=== PATIENT | female | born 1935 | race Caucasian/White ===

== ENCOUNTER → 2016-06-14 | Outpatient (CLI) | payer MEDICARE ==
--- NOTE | 2016-06-14 12:53 | RAD ---
EXAM: DIGITAL SCREEN BILAT W/CAD. HISTORY: Screening. COMPARISON: 06/12/2015 and 06/11/2014. FINDINGS: Digital mammography was performed. Computer-aided detection (CAD) was utilized. The breast parenchyma is heterogeneously dense, which could reduce sensitivity of mammography (tissue density C). No dominant suspicious mass, suspicious microcalcifications, or architectural distortion is identified. Both breasts demonstrate scattered, benign-appearing calcifications. IMPRESSION: No mammographic evidence of malignancy. BI-RADS CATEGORY: 2 BENIGN FINDING(S) RECOMMENDED FOLLOW-UP: 12M 12 MONTH FOLLOW-UP PQRS compliance statement: Patient information was entered into a reminder system with a target due date for the next mammogram. Mammography is a sensitive method for finding small breast cancers, but it does not detect them all and is not a substitute for careful clinical examination. A negative mammogram does not negate a clinically suspicious finding and should not result in delay in biopsying a clinically suspicious abnormality. "Our facility is accredited by the [employer] Mammography Program."
== END | disposition home or self-care (01) ==
LOC: MAMMO 14:12
PROVIDERS: ATTEND Family Medicine
DX: Z12.31 Encounter for screening mammogram for malignant neoplasm of breast (principal)
CPT/HCPCS: 77052; G0202; 77067

== ENCOUNTER → 2017-06-24 | Outpatient (CLI) | payer MEDICARE | END | disposition home or self-care (01) | LOC: MAMMO 14:06 | DX: Z12.31 Encounter for screening mammogram for malignant neoplasm of breast (principal) | CPT/HCPCS: 77067 ==

== ENCOUNTER 2017-10-06 18:47 | Emergency (ER) | payer MEDICARE ==
[2017-10-06 19:59] LABS: BILIRUBIN,URINE NEGATIVE (NEG); CLARITY,URINE CLEAR; COLOR,URINE YELLOW; GLUCOSE,URINE NEGATIVE (NEG); NITRITE,URINE NEGATIVE (NEG); PH,URINE 5.5; PROTEIN,URINE NEGATIVE (NEG-TRACE); UROBILINOGEN,URINE 0.2 mg/dL (0.2 mg/dL)
[2017-10-06 20:12] LABS: BACTERIA,URINE 0 /HPF (0-FEW); RBC,URINE 0 /HPF (0-2); SQUAMOUS EPITHELIAL CELL,UR MOD /LPF
[2017-10-06] MEDS: MORPHINE SULFATE 4 MG/ML DISP.SYRIN. IV (20:14)
[2017-10-06] MEDS: ONDANSETRON PF 4 MG/2 ML VIAL. IV (20:14)
[2017-10-06] MEDS: IV NORMAL SALINE 500ML BAG 500 ML IV (20:15)
[2017-10-06 20:18] LABS: ADD MAN DIFF? NO
[2017-10-06 20:20] LABS: BASO # 0.1 x10^3/uL (0.0-0.2); BASO % 1 % (0-3); EOS # 0.1 x10^3/uL (0.0-0.7); EOS % 1 % (0-3); HEMATOCRIT 41.8 % (36.0-47.0); HEMOGLOBIN 14.6 g/dL (12.0-15.5); LYMPH # 2.9 x10^3/uL (1.0-4.8); LYMPH % 28 % (24-48); MEAN CORPUSCULAR HEMOGLOBIN 32 pg (25-35); MEAN CORPUSCULAR HGB CONC 35 g/dL (31-37); MEAN CORPUSCULAR VOLUME 92 fL (79-100); MONO # 0.8 x10^3/uL (0.0-1.1); MONO % 8 % (0-9); NEUT # 6.4 x10^3uL (1.8-7.7); NEUT % 62 % (31-73); PLATELET COUNT 198 x10^3/uL (140-400); RED BLOOD COUNT 4.53 x10^6/uL (3.50-5.40); RED CELL DISTRIBUTION WIDTH 12.8 % (11.5-14.5); WHITE BLOOD COUNT 10.2 x10^3/uL (4.0-11.0)
[2017-10-06 20:27] LABS: ANION GAP 8 (6-14); BLOOD UREA NITROGEN 28 mg/dL (7-20); BUN/CREATININE RATIO 25 (6-20); CALCIUM 9.2 mg/dL (8.5-10.1); CARBON DIOXIDE 28 mmol/L (21-32); CHLORIDE 105 mmol/L (98-107); CREATININE 1.1 mg/dL (0.6-1.0); GFR 47.8; GLUCOSE 128 mg/dL (70-99); POTASSIUM 4.1 mmol/L (3.5-5.1); SODIUM 141 mmol/L (136-145)
[2017-10-06 20:32] LABS: ALBUMIN 3.5 g/dL (3.4-5.0); ALBUMIN/GLOBULIN RATIO 1.1 (1.0-1.7); ALK PHOS 50 U/L (46-116); ALT (SGPT) 32 U/L (14-59); AST (SGOT) 19 U/L (15-37); LIPASE 97 U/L (73-393); TOTAL BILIRUBIN 0.6 mg/dL (0.2-1.0); TOTAL PROTEIN 6.8 g/dL (6.4-8.2)
== END 2017-10-06 21:46 | disposition home or self-care (01) ==
LOC: ER 18:47
DX: M54.5 Low back pain (principal); E78.00 Pure hypercholesterolemia, unspecified
CPT/HCPCS: 36415; 74176; 80053; 81001; 83690; 85025; 96374; 96375; 99285-25; J2270; J2405; J7040

== ENCOUNTER → 2017-10-12 | Outpatient (CLI) | payer MEDICARE ==
[2017-10-12] MEDS: GADOBUTROL 10 MMOL/10 ML VIAL IV (10:15)
== END | disposition home or self-care (01) ==
LOC: MRI 09:49
DX: K57.10 Diverticulosis of small intestine without perforation or abscess without bleeding (principal); N28.89 Other specified disorders of kidney and ureter
CPT/HCPCS: 74183; A9585

== ENCOUNTER 2017-12-29 08:09 | Outpatient (CLI) | payer MEDICARE ==
[2017-12-29] MEDS ORDERED: LIDOCAINE WITH 8.4% SOD BICARB 3 ML DISP.SYRIN. (08:51)
[2017-12-29 08:58] LABS: ADD MAN DIFF? NO
[2017-12-29 09:07] LABS: BASO % 1 % (0-3); EOS # 0.1 x10^3/uL (0.0-0.7); EOS % 1 % (0-3); HEMATOCRIT 43.4 % (36.0-47.0); HEMOGLOBIN 15.1 g/dL (12.0-15.5); LYMPH # 2.9 x10^3/uL (1.0-4.8); LYMPH % 39 % (24-48); MEAN CORPUSCULAR HEMOGLOBIN 32 pg (25-35); MEAN CORPUSCULAR HGB CONC 35 g/dL (31-37); MEAN CORPUSCULAR VOLUME 93 fL (79-100); MONO # 0.8 x10^3/uL (0.0-1.1); MONO % 11 % (0-9); NEUT # 3.6 x10^3uL (1.8-7.7); NEUT % 49 % (31-73); PLATELET COUNT 197 x10^3/uL (140-400); RED BLOOD COUNT 4.65 x10^6/uL (3.50-5.40); RED CELL DISTRIBUTION WIDTH 12.8 % (11.5-14.5); WHITE BLOOD COUNT 7.3 x10^3/uL (4.0-11.0)
[2017-12-29 09:15] LABS: ANION GAP 5 (6-14); BLOOD UREA NITROGEN 26 mg/dL (7-20); CALCIUM 9.7 mg/dL (8.5-10.1); CARBON DIOXIDE 31 mmol/L (21-32); CHLORIDE 105 mmol/L (98-107); GFR 53.3; GLUCOSE 110 mg/dL (70-99); INR 1.1 (0.8-1.1); PARTIAL THROMBOPLASTIN TIME 28 SEC (24-38); PROTHROMBIN TIME PATIENT 13.3 SEC (11.7-14.0); SODIUM 141 mmol/L (136-145)
[2017-12-29] MEDS ORDERED: GELATIN SPONGE SIZE 12-7MM SPONGE. (09:15)
[2017-12-29] MEDS ORDERED: MIDAZOLAM HCL/PF 2 MG/2 ML VIAL. (09:28)
[2017-12-29] MEDS ORDERED: fentaNYL PF VIAL 100 MCG/2 ML VIAL (09:28)
[2017-12-29] MEDS ORDERED: IOHEXOL 300 MG/ML 100ML VIAL. (09:51)
[2017-12-29] MEDS: fentaNYL PF VIAL 100 MCG/2 ML VIAL IV (10:00)
[2017-12-29] MEDS: LIDOCAINE WITH 8.4% SOD BICARB 3 ML DISP.SYRIN. IJ (10:00)
[2017-12-29] MEDS: MIDAZOLAM HCL/PF 2 MG/2 ML VIAL. IV (10:00)
[2017-12-29] MEDS: IOHEXOL 300 MG/ML 100ML VIAL. IART (10:30)
[2017-12-29] MEDS ORDERED: CONTRAST GIVEN. MC (10:45)
== END 2017-12-29 13:20 | disposition home or self-care (01) ==
LOC: INTRAD 08:09
DX: N28.89 Other specified disorders of kidney and ureter (principal); I10 Essential (primary) hypertension; J45.909 Unspecified asthma, uncomplicated; E78.00 Pure hypercholesterolemia, unspecified; Z87.891 Personal history of nicotine dependence; Z85.828 Personal history of other malignant neoplasm of skin; Z79.82 Long term (current) use of aspirin; Z79.899 Other long term (current) drug therapy
CPT/HCPCS: 36415; 50200; 77012; 80048; 85025; 85610; 85730; 99152; 99153; J2250; J3010; Q9967

== ENCOUNTER → 2018-03-07 | Outpatient (CLI) | payer MEDICARE ==
[2017-12-29 13:00] VITALS: BP 141/62
[~2018-03-07] MED LIST: ALPR0.5T6 PO; ASPI-630 PO; ATOR10TA60 PO; AZEL23SP NS; CA C1TAB62 PO; HYDR-971 PO; MULT-697 PO; OMEG100021 PO; PANT20TA2 PO; VALS1TAB14 PO; VERA240C2 PO; VIT1CAPS12 PO
--- NOTE | 2018-03-07 09:18 | RAD ---
Abdominal ultrasound, 03/07/2018: HISTORY: Right upper quadrant pain The gallbladder is within normal limits in size. There is no sonographic evidence of cholelithiasis. The gallbladder wall is not thickened. The common hepatic duct is of normal caliber. No hepatic mass or bile duct dilatation is seen. The right kidney is unremarkable. A 3.2 cm hypoechoic nodule is seen in the left kidney. It demonstrates a sharp posterior wall with faint posterior acoustic enhancement. This is probably a cyst, although difficult to conclusively characterize sonographically due to the patient's size. Note is made that on the MR study of 10/12/2017, possible delayed enhancement was noted. The spleen is of normal size. A 1.2 cm cystic-appearing structure is seen in the region of the pancreatic body. This does not appear to correspond location to the small cystic structure seen along the posterior aspect of the uncinate process of the pancreatic head on a prior CT and MR studies. Portions of the pancreas are obscured by overlying bowel. IMPRESSION: 1. No significant gallbladder abnormality is detected. 2. Probable small left renal cyst. 3. Probable pancreatic cyst. 4. The additional small cyst delineated along the posterior margin of the pancreatic head seen on previous imaging is not visualized sonographically. 5. CT surveillance of the pancreatic and left renal findings is suggested, if clinically indicated. Electronically signed by: Rory Marrero MD (03/07/2018 9:14 AM) [facility]
--- NOTE | 2018-03-07 12:34 | RAD ---
HEPATOBILIARY SCAN WITH EJECTION FRACTION 03/07/2018 12:29 PM History: right upper quandrant abdomen pain, gassy for 6 months. 5.5mCi Tc99m Choletec. 8 ounces Ensure for EF since there is no kinevac available and scanned 60 minutes. Procedure: Serial static images are obtained of the liver and biliary system in the frontal projection following IV administration of 5.5 mCi of Technetium 99m Choletec. After filling of the gallbladder, a fat-containing oral supplement was given and dynamic imaging continued. The gallbladder ejection fraction was calculated. Findings: There is prompt hepatic clearance of tracer from the blood pool. There is homogeneous distribution throughout the liver. The gallbladder ejection fraction measures 56% IMPRESSION: 1. The cystic duct and common bile duct are patent. Negative for acute cholecystitis. 2. The gallbladder ejection fraction is grossly normal Electronically signed by: Avelino Belle MD (03/07/2018 12:30 PM) [id number]
== END | disposition home or self-care (01) ==
LOC: US 06:41
PROVIDERS: ATTEND Physician Assistant
DX: N28.89 Other specified disorders of kidney and ureter (principal); I10 Essential (primary) hypertension; J45.909 Unspecified asthma, uncomplicated; E78.00 Pure hypercholesterolemia, unspecified; Z85.828 Personal history of other malignant neoplasm of skin; Z87.891 Personal history of nicotine dependence; Z79.899 Other long term (current) drug therapy
CPT/HCPCS: 76700; 78226; 96374; 96375; A9537

== ENCOUNTER → 2018-06-26 | Outpatient (CLI) | payer MEDICARE ==
[2017-12-29 13:00] VITALS: BP 141/62
[~2018-06-26] MED LIST changes: +HYDR-3164 PO; -HYDR-971 PO
--- NOTE | 2018-06-28 11:18 | RAD ---
DATE: 06/26/2018 EXAM: MAMMO EFRA SCREENING BILATERAL HISTORY: Routine screening COMPARISON: 06/24/2017 This study was interpreted with the benefit of Computerized Aided Detection (CAD). Breast Density: HETERO The breast parenchyma is heterogenously dense, which could reduce sensitivity of mammography. Breast parenchyma level C. FINDINGS: 2-D and 3-D tomosynthesis imaging was performed in CC and MLO projections. The fibroglandular tissues are heterogeneous in a multinodular pattern. No new or enlarging breast densities are seen. Numerous benign type calcifications are present. No suspicious microcalcifications have developed. IMPRESSION: There is no mammographic evidence of malignancy in either breast. BI-RADS CATEGORY: 2 BENIGN FINDING(S) RECOMMENDED FOLLOW-UP: 12M 12 MONTH FOLLOW-UP PQRS compliance statement: Patient information was entered into a reminder system with a target due date for the next mammogram. Mammography is a sensitive method for finding small breast cancers, but it does not detect them all and is not a substitute for careful clinical examination. A negative mammogram does not negate a clinically suspicious finding and should not result in delay in biopsying a clinically suspicious abnormality. "Our facility is accredited by the [employer] Mammography Program."
== END | disposition home or self-care (01) ==
LOC: MAMMO 14:56
PROVIDERS: ATTEND Family Medicine
DX: Z12.31 Encounter for screening mammogram for malignant neoplasm of breast (principal)
CPT/HCPCS: 77063; 77067

== ENCOUNTER → 2018-09-01 | Outpatient (CLI) | payer MEDICARE ==
[2017-12-29 13:00] VITALS: BP 141/62
--- NOTE | 2018-09-01 09:56 | RAD ---
EXAM: Lower extremity arterial Doppler sonogram with ankle-brachial indices (RAÚL). HISTORY: Right great toe discoloration. TECHNIQUE: Doppler sonographic evaluation of the lower extremities was performed and pressure readings were assessed. FINDINGS: Right brachial pressure: 145 mmHg Left brachial pressure: 129 mmHg Right ankle pressure: 144 mmHg Right ankle RAÚL: 0.99 Left ankle pressure: 161 mmHg Left ankle RAÚL: 1.1 There are biphasic waveforms within the dorsalis pedis arteries and triphasic waveforms within the distal posterior tibial arteries. No occlusion is seen. IMPRESSION: Normal bilateral ankle-brachial indices. Electronically signed by: Tania Guy MD (09/01/2018 9:53 AM) [id number]
== END | disposition home or self-care (01) ==
LOC: US 07:38
PROVIDERS: ATTEND Family Medicine
DX: M79.671 Pain in right foot (principal); M79.674 Pain in right toe(s)
CPT/HCPCS: 93922

== ENCOUNTER → 2018-11-03 | Outpatient (CLI) | payer MEDICARE ==
[2017-12-29 13:00] VITALS: BP 141/62
--- NOTE | 2018-11-03 13:41 | KCIC ---
Bilateral lower extremity venous doppler ultrasound History: Foot swelling and discoloration Comparison: None Findings: Multiple grayscale, color, and duplex spectral analysis sonographic images were acquired of the bilateral lower extremity veins to evaluate for the presence of DVT. There is normal phasicity. Normal compression, color-flow, and augmentation is demonstrated from the bilateral common femoral to the popliteal veins. There is normal color flow of the proximal greater saphenous and profunda femoris veins. There is normal color flow of segments of the calf veins. Impression: 1. There is no evidence of deep venous thrombosis from the bilateral common femoral to the popliteal veins. Electronically signed by: Jayden Carrillo MD (11/03/2018 1:39 PM) [id number]
== END | disposition home or self-care (01) ==
LOC: KCIC US 11:33
PROVIDERS: ATTEND Family Medicine
DX: M79.89 Other specified soft tissue disorders (principal)
CPT/HCPCS: 93970

== ENCOUNTER → 2019-01-31 | Outpatient (CLI) | payer MEDICARE ==
[2017-12-29 13:00] VITALS: BP 141/62
--- NOTE | 2019-01-31 16:32 | KCIC ---
Examination: Ultrasound kidneys HISTORY: History of left renal cyst COMPARISON: 03/07/2018 Findings : The right kidney measures 9.9 x 4.2 x 4.8 cm. The left kidney measures 10.9 x 3.8 x 5.4 cm.There is a 2.5 cm cyst identified in the left kidney. There is thinning of the bilateral renal cortices, right greater than left. The urinary bladder is mildly distended. Bilateral ureteral jets identified. IMPRESSION: 1. 2.5 cm cyst left kidney. 2. Thinning of the bilateral renal cortices probably medical renal disease. Electronically signed by: Oren Finley MD (01/31/2019 4:29 PM) [place] [id number]
== END | disposition home or self-care (01) ==
LOC: KCIC US 15:25
PROVIDERS: ATTEND Internal Medicine Nephrology
DX: N28.1 Cyst of kidney, acquired (principal); N32.89 Other specified disorders of bladder; Z79.84 Long term (current) use of oral hypoglycemic drugs; Z79.899 Other long term (current) drug therapy
CPT/HCPCS: 76770

== ENCOUNTER → 2019-06-27 | Outpatient (CLI) | payer MEDICARE ==
[2017-12-29 13:00] VITALS: BP 141/62
--- NOTE | 2019-06-27 17:14 | RAD ---
DATE: 06/27/2019 EXAM: MAMMO EFRA SCREENING BILATERAL HISTORY: Routine screening COMPARISON: 06/11/2014, 06/12/2015, 06/14/2016, 06/24/2017, 06/26/2018 mammographic exams This study was interpreted with the benefit of Computerized Aided Detection (CAD). Breast Density: HETERO The breast parenchyma is heterogenously dense, which could reduce sensitivity of mammography. Breast parenchyma level C. FINDINGS: No suspicious mass, calcification, or distortion in the interval. IMPRESSION: Stable BI-RADS CATEGORY: 1 NEGATIVE RECOMMENDED FOLLOW-UP: 12M 12 MONTH FOLLOW-UP PQRS compliance statement: Patient information was entered into a reminder system with a target due date for the next mammogram. Mammography is a sensitive method for finding small breast cancers, but it does not detect them all and is not a substitute for careful clinical examination. A negative mammogram does not negate a clinically suspicious finding and should not result in delay in biopsying a clinically suspicious abnormality. "Our facility is accredited by the [employer] Mammography [employer]."
== END | disposition home or self-care (01) ==
LOC: MAMMO 10:03
PROVIDERS: ATTEND Family Medicine
DX: Z12.31 Encounter for screening mammogram for malignant neoplasm of breast (principal); N64.89 Other specified disorders of breast
CPT/HCPCS: 77063; 77067

== ENCOUNTER 2019-07-24 14:23 | Emergency (ER) | payer MEDICARE ==
[~2019-07-24] VITALS: Ht 175.3 cm; Wt 106.0 kg
[2019-07-24] MEDS ORDERED: PIPERACILLIN/TAZOBACTAM 4.5 GM in IV NORMAL SALINE 100ML 100 ML IV ONE (15:30)
--- NOTE | 2019-07-24 15:57 | PHYS DOC ---
Past Medical History Past Medical History: Constipation, Diabetes-Type II, High Cholesterol, Hypertension Additional Past Medical Histor: CARBON MONOXIDE POISONING (ALIYAH MCDONALD APRN) Past Surgical History: Other Additional Past Surgical Histo: COLON RESECTION-benign tumor removal, bladder tie up, skin cancer removal (ALIYAH MCDONALD APRN) Smoking Status: Former Smoker Additional Information: quit smoking 1977 Alcohol Use: Rarely Drug Use: None (ALIYAH MCDONALD APRN) Adult General Chief Complaint Chief Complaint: TOE PROBLEM HPI HPI Patient is a 84 year old female with history of diabetes type 2, hypertension, high cholesterol, who presents to the ED today complaining of right great toe swelling, redness, pain, symptoms began around May 2019. Patient reports following up with the PCP today and she was sent to the ED. She reports she was seen around May 2019 and had Doppler of the right lower extremity to check for circulation which was negative. She reports she recently completed Cipro for an infected skin cancer lesion on her scalp. Patient denies any fever. (ALIYAH MCDONALD APRN) Review of Systems Review of Systems Constitutional: Denies fever or chills [] Eyes: Denies change in visual acuity, redness, or eye pain [] HENT: Denies nasal congestion or sore throat [] Respiratory: Denies cough or shortness of breath [] Cardiovascular: No additional information not addressed in HPI [] GI: Denies abdominal pain, nausea, vomiting, bloody stools or diarrhea [] : Denies dysuria or hematuria [] Musculoskeletal: Denies back pain or joint pain [] Integument: Reports right great toe swelling, redness, pain Neurologic: Denies headache, focal weakness or sensory changes [] All other systems were reviewed and found to be within normal limits, except as documented in this note. (ALIYAH MCDONALD APRN) Current Medications Current Medications Current Medications Medications (Trade) Dose Ordered Sig/Dario Start Time Stop Time Status Last Admin Dose Admin Piperacillin Sod/ Tazobactam Sod 4.5 gm/Sodium Chloride 100 ml @ 200 mls/hr 1X ONCE 07/24/19 15:30 07/24/19 15:59 DC 07/24/19 16:09 200 MLS/HR (CHUCK BORJA DO) Allergies Allergies Allergies Coded Allergies Type Severity Reaction Last Updated Verified No Known Drug Allergies 01/21/15 No (CHUCK BORJA DO) Physical Exam Physical Exam Constitutional: Well developed, well nourished, no acute distress, non-toxic appearance. [] HENT: Normocephalic, atraumatic, bilateral external ears normal, oropharynx mois t, no oral exudates, nose normal. [] Eyes: PERRLA, EOMI, conjunctiva normal, no discharge. [] Neck: Normal range of motion, no tenderness, supple, no stridor. [] Cardiovascular:Heart rate regular rhythm, no murmur [] Lungs & Thorax: Bilateral breath sounds clear to auscultation [] Abdomen: Bowel sounds normal, soft, no tenderness, no masses, no pulsatile masses. [] Skin: Warm, dry, the tip of the right great toe with slight swelling and slight erythema, there is no fluctuance to this region, the toenails appears to have fungal infection onychomycosis. +2 pedal pulses. Cap refill is less than 2 seconds the right toes. Back: No tenderness, no CVA tenderness. [] Extremities: No tenderness, no cyanosis, no clubbing, ROM intact, no edema. [] Neurologic: Alert and oriented X 3, normal motor function, normal sensory function, no focal deficits noted. [] Psychologic: Affect normal, judgement normal, mood normal. [] (ALIYAH MCDONALD APRN) Current Patient Data Vital Signs Vital Signs Date Time Temp Pulse Resp B/P (MAP) Pulse Ox O2 Delivery O2 Flow Rate FiO2 07/24/19 18:03 70 159/81 (107) 96 Room Air 07/24/19 16:38 22 07/24/19 14:58 96.8 96.8 (CHUCK BORJA DO) Lab Values Laboratory Tests Test 07/24/19 15:41 White Blood Count 10.5 x10^3/uL (4.0-11.0) Red Blood Count 4.80 x10^6/uL (3.50-5.40) Hemoglobin 15.8 g/dL (12.0-15.5) H Hematocrit 45.7 % (36.0-47.0) Mean Corpuscular Volume 95 fL (79-100) Mean Corpuscular Hemoglobin 33 pg (25-35) Mean Corpuscular Hemoglobin Concent 35 g/dL (31-37) Red Cell Distribution Width 13.1 % (11.5-14.5) Platelet Count 245 x10^3/uL (140-400) Neutrophils (%) (Auto) 54 % (31-73) Lymphocytes (%) (Auto) 36 % (24-48) Monocytes (%) (Auto) 9 % (0-9) Eosinophils (%) (Auto) 1 % (0-3) Basophils (%) (Auto) 1 % (0-3) Neutrophils # (Auto) 5.7 x10^3/uL (1.8-7.7) Lymphocytes # (Auto) 3.7 x10^3/uL (1.0-4.8) Monocytes # (Auto) 0.9 x10^3/uL (0.0-1.1) Eosinophils # (Auto) 0.1 x10^3/uL (0.0-0.7) Basophils # (Auto) 0.1 x10^3/uL (0.0-0.2) Erythrocyte Sedimentation Rate 1 (0-25) Sodium Level 136 mmol/L (136-145) Potassium Level 3.9 mmol/L (3.5-5.1) Chloride Level 98 mmol/L (98-107) Carbon Dioxide Level 31 mmol/L (21-32) Anion Gap 7 (6-14) Blood Urea Nitrogen 31 mg/dL (7-20) H Creatinine 1.2 mg/dL (0.6-1.0) H Estimated GFR (Cockcroft-Gault) 43.0 BUN/Creatinine Ratio 26 (6-20) H Glucose Level 187 mg/dL (70-99) H Lactic Acid Level 1.4 mmol/L (0.4-2.0) Calcium Level 9.8 mg/dL (8.5-10.1) Total Bilirubin 0.7 mg/dL (0.2-1.0) Aspartate Amino Transferase (AST) 17 U/L (15-37) Alanine Aminotransferase (ALT) 24 U/L (14-59) Alkaline Phosphatase 47 U/L (46-116) C-Reactive Protein, Quantitative < 0.5 mg/L (0-3.3) Total Protein 6.8 g/dL (6.4-8.2) Albumin 3.5 g/dL (3.4-5.0) Albumin/Globulin Ratio 1.1 (1.0-1.7) Procalcitonin < 0.10 ng/mL (0.00-0.10) Laboratory Tests 07/24/19 15:41 Laboratory Tests 07/24/19 15:41 Microbiology 07/24/19 Blood Culture - Preliminary, Resulted NO GROWTH AFTER 1 DAY (CHUCK BORJA DO) Lab Values Laboratory Tests Test 07/24/19 15:41 White Blood Count 10.5 x10^3/uL (4.0-11.0) Red Blood Count 4.80 x10^6/uL (3.50-5.40) Hemoglobin 15.8 g/dL (12.0-15.5) H Hematocrit 45.7 % (36.0-47.0) Mean Corpuscular Volume 95 fL (79-100) Mean Corpuscular Hemoglobin 33 pg (25-35) Mean Corpuscular Hemoglobin Concent 35 g/dL (31-37) Red Cell Distribution Width 13.1 % (11.5-14.5) Platelet Count 245 x10^3/uL (140-400) Neutrophils (%) (Auto) 54 % (31-73) Lymphocytes (%) (Auto) 36 % (24-48) Monocytes (%) (Auto) 9 % (0-9) Eosinophils (%) (Auto) 1 % (0-3) Basophils (%) (Auto) 1 % (0-3) Neutrophils # (Auto) 5.7 x10^3/uL (1.8-7.7) Lymphocytes # (Auto) 3.7 x10^3/uL (1.0-4.8) Monocytes # (Auto) 0.9 x10^3/uL (0.0-1.1) Eosinophils # (Auto) 0.1 x10^3/uL (0.0-0.7) Basophils # (Auto) 0.1 x10^3/uL (0.0-0.2) Erythrocyte Sedimentation Rate 1 (0-25) Sodium Level 136 mmol/L (136-145) Potassium Level 3.9 mmol/L (3.5-5.1) Chloride Level 98 mmol/L (98-107) Carbon Dioxide Level 31 mmol/L (21-32) Anion Gap 7 (6-14) Blood Urea Nitrogen 31 mg/dL (7-20) H Creatinine 1.2 mg/dL (0.6-1.0) H Estimated GFR (Cockcroft-Gault) 43.0 BUN/Creatinine Ratio 26 (6-20) H Glucose Level 187 mg/dL (70-99) H Lactic Acid Level 1.4 mmol/L (0.4-2.0) Calcium Level 9.8 mg/dL (8.5-10.1) Total Bilirubin 0.7 mg/dL (0.2-1.0) Aspartate Amino Transferase (AST) 17 U/L (15-37) Alanine Aminotransferase (ALT) 24 U/L (14-59) Alkaline Phosphatase 47 U/L (46-116) C-Reactive Protein, Quantitative < 0.5 mg/L (0-3.3) Total Protein 6.8 g/dL (6.4-8.2) Albumin 3.5 g/dL (3.4-5.0) Albumin/Globulin Ratio 1.1 (1.0-1.7) Procalcitonin < 0.10 ng/mL (0.00-0.10) Laboratory Tests 07/24/19 15:41 Laboratory Tests 07/24/19 15:41 (ALIYAH MCDONALD APRN) EKG EKG [] (ALIYAH MCDONALD APRN) Radiology/Procedures Radiology/Procedures []PROCEDURE: FOOT RIGHT 3V FOOT RIGHT 3V DATE: 07/24/2019 3:28 PM INDICATION: Great toe pain and redness COMPARISON: None. FINDINGS: Bones: There is no evidence of acute fracture or dislocation. No osseous erosions. Posterior and plantar calcaneal enthesophytes. Joints: The joint spaces are normal. Miscellaneous: None. IMPRESSION: No acute fracture. No osseous erosions. Electronically signed by: Ariel Iniguez MD (07/24/2019 4:00 PM) [id number] DICTATED and SIGNED BY: ARIEL INIGUEZ MD DATE: 07/24/19 1600 (ALIYAH MCDONALD APRN) Course & Med Decision Making Course & Med Decision Making Pertinent Labs and Imaging studies reviewed. (See chart for details) This is a 84-year-old female patient presenting to the ED today with right great toe pain swelling and redness that began in May 2019. Right foot x-rays interpreted by radiologist are negative for any acute findings. Tetanus is up-to-date. Patient reports already having an outpatient ultrasound of the right lower extremity, it sounds like it was an arterial Doppler that was negative. CBC with a normal WBC, lactic is normal, sedimentation rate is normal, CMP is normal. Will be discharged with Bactrim and cephalexin. Provided coater smoking pipe for follow-up as well as PCP (ALIYAH MCDONALD APRN) Dragon Disclaimer Dragon Disclaimer This electronic medical record was generated, in whole or in part, using a voice recognition dictation system. (ALIYAH MCDONALD APRN) Departure Departure Impression: Primary Impression: Cellulitis of great toe of right foot Disposition: HOME, SELF-CARE Condition: STABLE Referrals: KARRIE MONSON (PCP) follow up in one week BRIDGETT CEJA DPM follow up in one week Patient Instructions: Cellulitis, [id number] Additional Instructions: You were evaluated in the emergency room with the right great toe redness and swelling, your right foot x-rays were negative for any acute findings, lab work was negative for any acute findings, take the prescribed antibiotics as ordered until completed. Follow-up with your primary care doctor as well as the provided coater smoking pipe in the next 1-2 weeks. Scripts Cephalexin (CEPHALEXIN) 500 Mg Tablet 1 TAB PO TID, #30 TAB Prov: ALIYAH MCDONALD APRN 07/24/19 Sulfamethoxazole/Trimethoprim (BACTRIM DS TABLET) 1 Each Tablet 1 TAB PO BID for 10 Days, #20 TAB 0 Refills Prov: ALIYAH MCDONALD APRN 07/24/19 Attending Signature Attending Signature I have reviewed the PA/UKE OPERATOR's note and plan of care. I was available for consultation as needed during the patient's visit in the emergency department. I agree with the clinical impression, plan, and disposition. (CHUCK BORJA DO) ALIYAH MCDONALD APRN Jul 24, 2019 15:57 CHUCK BORJA DO Jul 25, 2019 21:54
[2019-07-24 15:58] LABS: BASO # 0.1 x10^3/uL (0.0-0.2); BASO % 1 % (0-3); EOS # 0.1 x10^3/uL (0.0-0.7); EOS % 1 % (0-3); HEMATOCRIT 45.7 % (36.0-47.0); HEMOGLOBIN 15.8 g/dL (12.0-15.5); LYMPH # 3.7 x10^3/uL (1.0-4.8); LYMPH % 36 % (24-48); MEAN CORPUSCULAR HEMOGLOBIN 33 pg (25-35); MEAN CORPUSCULAR HGB CONC 35 g/dL (31-37); MEAN CORPUSCULAR VOLUME 95 fL (79-100); MONO # 0.9 x10^3/uL (0.0-1.1); MONO % 9 % (0-9); NEUT # 5.7 x10^3/uL (1.8-7.7); NEUT % 54 % (31-73); PLATELET COUNT 245 x10^3/uL (140-400); RED CELL DISTRIBUTION WIDTH 13.1 % (11.5-14.5); WHITE BLOOD COUNT 10.5 x10^3/uL (4.0-11.0)
--- NOTE | 2019-07-24 16:03 | RAD ---
FOOT RIGHT 3V DATE: 07/24/2019 3:28 PM INDICATION: Great toe pain and redness COMPARISON: None. FINDINGS: Bones: There is no evidence of acute fracture or dislocation. No osseous erosions. Posterior and plantar calcaneal enthesophytes. Joints: The joint spaces are normal. Miscellaneous: None. IMPRESSION: No acute fracture. No osseous erosions. Electronically signed by: Jayden Iniguez MD (07/24/2019 4:00 PM) [id number]
[2019-07-24 16:05] LABS: ANION GAP 7 (6-14); BLOOD UREA NITROGEN 31 mg/dL (7-20); BUN/CREATININE RATIO 26 (6-20); CALCIUM 9.8 mg/dL (8.5-10.1); CARBON DIOXIDE 31 mmol/L (21-32); CHLORIDE 98 mmol/L (98-107); CREATININE 1.2 mg/dL (0.6-1.0); GLUCOSE 187 mg/dL (70-99); POTASSIUM 3.9 mmol/L (3.5-5.1); SODIUM 136 mmol/L (136-145)
[2019-07-24 16:11] LABS: ALBUMIN 3.5 g/dL (3.4-5.0); ALBUMIN/GLOBULIN RATIO 1.1 (1.0-1.7); ALK PHOS 47 U/L (46-116); ALT (SGPT) 24 U/L (14-59); AST (SGOT) 17 U/L (15-37); TOTAL BILIRUBIN 0.7 mg/dL (0.2-1.0); TOTAL PROTEIN 6.8 g/dL (6.4-8.2)
[2019-07-24 16:56] LABS: C-REACTIVE PROTEIN < 0.5 mg/L (0-3.3)
[2019-07-24] MEDS ORDERED: CEPH500T PO (18:02)
[2019-07-24] MEDS ORDERED: SULF1TAB24 PO (18:02)
[2019-07-24 18:03] VITALS: BP 159/81
== END 2019-07-24 18:39 | disposition home or self-care (01) ==
LOC: ER 14:23
DX: L03.031 Cellulitis of right toe (principal); E11.9 Type 2 diabetes mellitus without complications; E78.00 Pure hypercholesterolemia, unspecified; I10 Essential (primary) hypertension; Z87.891 Personal history of nicotine dependence
CPT/HCPCS: 36415; 73630; 80053; 83605; 84145; 85025; 85651; 86140; 87040; 96365; 99285; J2543

== ENCOUNTER → 2020-06-30 | Outpatient (CLI) | payer MEDICARE ==
[~2020-06-30] MED LIST changes: +CEPH500T PO; +SULF1TAB24 PO
--- NOTE | 2020-06-30 12:44 | RAD ---
DATE: 06/30/2020 11:00 AM EXAM: DIGITAL SCREEN BILAT W/CAD HISTORY: Screening COMPARISON: 06/27/2019 Bilateral full field craniocaudal and mediolateral oblique images were obtained using digital technique. This study was interpreted with the benefit of Computerized Aided Detection (CAD). FINDINGS: Breast Density: HETERO The breast parenchyma Is heterogeneously dense, which could reduce sensitivity of mammography. Breast parenchyma level C No suspicious masses, microcalcifications or architectural distortion is present to suggest malignancy in either breast. The visualized axillae are unremarkable. IMPRESSION: No mammographic evidence of malignancy. BI-RADS CATEGORY: 1 NEGATIVE RECOMMENDED FOLLOW-UP: 12M 12 MONTH FOLLOW-UP Annual screening mammography is recommended, unless clinically indicated sooner based on symptoms or change in physical exam. PQRS compliance statement: Patient information was entered into a reminder system with a target due date for the next mammogram. Mammography is a sensitive method for finding small breast cancers, but it does not detect them all and is not a substitute for careful clinical examination. A negative mammogram does not negate a clinically suspicious finding and should not result in delay in biopsying a clinically suspicious abnormality. "Our facility is accredited by the [employer] Mammography Program."
== END ==
LOC: MAMMO 10:56
PROVIDERS: ATTEND Family Medicine
DX: Z12.31 Encounter for screening mammogram for malignant neoplasm of breast (principal)
CPT/HCPCS: 77067

== ENCOUNTER → 2021-07-01 | Outpatient (CLI) | payer MEDICARE ==
--- NOTE | 2021-07-01 10:24 | RAD ---
BILATERAL DIGITAL SCREENING 2-D MAMMOGRAM INDICATION: Routine screening. COMPARISON: Prior exams including on 06/30/2020. Interpretation was made using CAD. FINDINGS: Breast Density: B RIGHT BREAST: No suspicious masses, calcifications or areas of architectural distortion are seen. LEFT BREAST: No suspicious masses, calcifications or areas of architectural distortion are seen. IMPRESSION: 1. No imaging evidence of malignancy. ASSESSMENT: BI-RADS 1. Negative. RECOMMENDATION: Routine annual screening mammogram. The facility will notify the patient of the results via mail. Patient information will be entered int o the mammography reminder system with a target recall date for the next mammogram. A reminder letter will be generated by the facility. Electronically signed by: Oscar Love Jr., MD (07/01/2021 10:22 AM) [id number]
== END ==
LOC: MAMMO 09:48
PROVIDERS: ATTEND Family Medicine
DX: Z12.31 Encounter for screening mammogram for malignant neoplasm of breast (principal)
CPT/HCPCS: 77067